=== PATIENT | male | born 1985 ===

== ENCOUNTER 2016-07-11 10:49 | Emergency (ER) | payer BC ==
--- NOTE | 2016-07-11 11:48 | UC ---
Throat Pain/Nasal Yifan HPI - HPI Summary HPI Summary: Approx 2 weeks ago contracted coughing illness with PND, ST. 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 Was feeling a lot better 7-8 days ago, then developed focal L forehead pain and pressure 5-6 days ago. Gets better with ibuprofen, but always comes back in same place. - History of Current Complaint Chief Complaint: UCRespiratory Stated Complaint: SINUS ISSUE Time Seen by Provider: 07/11/16 11:29 Hx Obtained From: Patient Onset/Duration: Gradual Onset, Lasting Days Severity: Moderate Cough: None Associated Signs & Symptoms: Positive: Sinus Discomfort, Nasal Discharge - Allergies/Home Medications Allergies/Adverse Reactions: Allergies Allergy/AdvReac Type Severity Reaction Status Date / Time No Known Allergies Allergy Verified 07/11/16 11:12 PMH/Surg Hx/FS Hx/Imm Hx Endocrine History Of: Denies: Diabetes, Thyroid Disease Cardiovascular History Of: Denies: Cardiac Disorders, Hypertension Respiratory History Of: Denies: COPD, Asthma GI/ History Of: Denies: Ulcer - Surgical History Surgical History: None - Family History Known Family History: Negative: Blood Disorder - Social History Occupation: Employed Full-time Lives: With Family Alcohol Use: Weekly Substance Use Type: None Smoking Status (MU): Never Smoked Tobacco Review of Systems Constitutional: Negative Skin: Negative Eyes: Negative ENT: Other - L frontal sinusitis Respiratory: Negative Cardiovascular: Negative Gastrointestinal: Negative Genitourinary: Negative Motor: Negative Neurovascular: Negative Musculoskeletal: Negative Neurological: Negative Psychological: Negative All Other Systems Reviewed And Are Negative: Yes Physical Exam Triage Information Reviewed: Yes Appearance: Well-Appearing, No Pain Distress, Well-Nourished Vital Signs: Initial Vital Signs Temp 99.3 F 07/11/16 11:09 Pulse 75 07/11/16 11:09 Resp 16 07/11/16 11:09 BP 117/66 07/11/16 11:09 Pulse Ox 99 07/11/16 11:09 Vital Signs Reviewed: Yes Eye Exam: Normal Eyes: Positive: Conjunctiva Clear ENT: Positive: Hearing grossly normal, Pharynx normal, Nasal congestion, TMs normal, Other: - L frontal sinus tenderness. Negative: Tonsillar swelling, Tonsillar exudate Dental Exam: Normal Neck exam: Normal Respiratory Exam: Normal Respiratory: Positive: Chest non-tender, Lungs clear, Normal breath sounds, No respiratory distress, No accessory muscle use Cardiovascular Exam: Normal Cardiovascular: Positive: RRR, No Murmur Musculoskeletal Exam: Normal Neurological Exam: Normal Psychological Exam: Normal Skin Exam: Normal Throat Pain/Nasal Course/Dx - Differential Dx/Diagnosis Provider Diagnoses: L frontal sinusitis Discharge - Discharge Plan Condition: Stable Disposition: HOME Prescriptions: Amoxicillin/Clavulanate TAB* [Augmentin TAB 875*] 875 mg PO BID #14 tab Patient Education Materials: Sinusitis (ED), Nasal Rinse (ED) Referrals: [facility] [Outside] Additional Instructions: Call or come back if you do not see some improvement in the next 4-5 days.
== END 2016-07-11 12:04 | disposition home or self-care (01) ==
LOC: UCEAST 10:49
DX: J32.1 Chronic frontal sinusitis (principal)
CPT/HCPCS: 99201; G0463